=== PATIENT | male | born 1945 | race Hispanic/Latino ===

== ENCOUNTER → 2016-11-08 | Outpatient (CLI) | payer MEDICARE ==
[~2016-11-08] MED LIST: ASMA220A2 IN; ATRO0.06; CLOT1CRE71 TOP; D 10CHW PO; FLUC10TA AD; LISI20TA3 PO; LOPR1TAB6 PO; MOME50SP2; MONT10TA2 PO; MULTTAB4 PO; OMEP20CA3 AD; OSTETAB3 PO; VALS160T PO; ZYRT10CA PO
[2016-11-08 07:23] LABS: ALBUMIN 3.7 GM/DL (3.2-5.2); ALBUMIN/GLOBULIN RATIO 1.12 (1.00-1.93); ALKALINE PHOSPHATASE 75 U/L (45-117); ALT/SGPT 29 U/L (12-78); ANION GAP 6 MEQ/L (8-16); AST/SGOT 19 U/L (15-37); BILIRUBIN,TOTAL 0.4 MG/DL (0.2-1.0); BLOOD UREA NITROGEN 15 MG/DL (7-18); CALCIUM LEVEL 9.5 MG/DL (8.8-10.2); CARBON DIOXIDE LEVEL 30 MEQ/L (21-32); CHLORIDE LEVEL 106 MEQ/L (98-107); CREATININE FOR GFR 0.94 MG/DL (0.70-1.30); GLOMERULAR FILTRATION RATE > 60.0 (>42); GLUCOSE, FASTING 98 MG/DL (83-110); SODIUM LEVEL 142 MEQ/L (136-145)
== END ==
LOC: M LAB 06:32
PROVIDERS: ATTEND Internal Medicine Cardiovascular Disease
DX: E78.5 Hyperlipidemia, unspecified (principal); I10 Essential (primary) hypertension

== ENCOUNTER → 2017-08-09 | Outpatient (REF) | payer MEDICARE | LOC: M LAB REF 15:36 | DX: B35.3 Tinea pedis (principal) | CPT/HCPCS: 87101 ==

== ENCOUNTER 2017-08-10 17:59 | Emergency (ER) | payer MEDICARE ==
[2017-08-10] MEDS: ASPIRIN 81 MG CHEW TABLET PO (18:39)
[2017-08-10] MEDS: NITROGLYCERIN 0.4 MG SUBL TABLET SL ×2 (18:41→18:50)
[2017-08-10 18:45] LABS: BASO % 0.4 % (0.0-1.0); EOS # 0.1 10^3/uL (0.0-0.50); EOS % 1.1 % (0.0-3.0); HEMOGLOBIN 14.7 g/dl (13.5-17.5); IMMATURE GRANULOCYTE % 1.3 % (0-3.0); LYMPH # 1.3 10^3/uL (1.5-4.5); LYMPH % 13.6 % (24.0-44.0); MEAN CORPUSCULAR VOLUME 94.2 fl (80.0-96.0); MONO # 1.1 10^3/uL (0.0-0.8); MONO % 11.5 % (0.0-5.0); NEUTROPHILS # 6.6 10^3/uL (1.8-7.7); NEUTROPHILS % 72.1 % (36.0-66.0); PLATELET COUNT, AUTOMATED 222 10^3/uL (150-450); RED BLOOD COUNT 4.46 10^6/uL (4.30-6.10); RED CELL DISTRIBUTION WIDTH 12.6 % (11.5-14.5); WHITE BLOOD COUNT 9.2 10^3/uL (4.0-10.0)
[2017-08-10 18:50] LABS: INR 0.95; PROTHROMBIN TIME 12.8 SECONDS (12.4-14.5)
[2017-08-10 18:58] LABS: ALBUMIN 3.6 GM/DL (3.2-5.2); ALBUMIN/GLOBULIN RATIO 0.92 (1.00-1.93); ALKALINE PHOSPHATASE 88 U/L (45-117); ALT/SGPT 38 U/L (12-78); ANION GAP 7 MEQ/L (8-16); AST/SGOT 26 U/L (7-37); BILIRUBIN,DIRECT 0.1 MG/DL (0.0-0.2); BILIRUBIN,TOTAL 0.4 MG/DL (0.2-1.0); BLOOD UREA NITROGEN 18 MG/DL (7-18); CALCIUM LEVEL 8.7 MG/DL (8.8-10.2); CARBON DIOXIDE LEVEL 27 MEQ/L (21-32); CHLORIDE LEVEL 105 MEQ/L (98-107); CPK CREATINE PHOSPHOKINASE 113 U/L (39-308); CREATININE FOR GFR 1.02 MG/DL (0.70-1.30); GLOMERULAR FILTRATION RATE > 60.0 (>42); GLUCOSE, FASTING 109 MG/DL (70-100); MB/CK RELATIVE INDEX 1.76 (< OR =4); POTASSIUM SERUM 3.6 MEQ/L (3.5-5.1); SODIUM LEVEL 139 MEQ/L (136-145); TOTAL PROTEIN 7.5 GM/DL (6.4-8.2); TROPONIN I 0.12 NG/ML (< 0.10)
== END 2017-08-10 20:47 | disposition short-term general hospital (02) ==
LOC: M ED 17:59
DX: I21.4 Non-ST elevation (NSTEMI) myocardial infarction (principal); I10 Essential (primary) hypertension; Z87.891 Personal history of nicotine dependence; Z95.5 Presence of coronary angioplasty implant and graft; Z79.02 Long term (current) use of antithrombotics/antiplatelets; Z79.82 Long term (current) use of aspirin; Z51.81 Encounter for therapeutic drug level monitoring; Z79.899 Other long term (current) drug therapy; B35.4 Tinea corporis
CPT/HCPCS: 71045

== ENCOUNTER → 2017-08-10 | Outpatient (CLI) | payer MEDICARE ==
[2017-08-10 10:00] LABS: ALBUMIN 3.7 GM/DL (3.2-5.2); ALBUMIN/GLOBULIN RATIO 1.23 (1.00-1.93); ALKALINE PHOSPHATASE 70 U/L (45-117); ALT/SGPT 37 U/L (12-78); AST/SGOT 20 U/L (7-37); BILIRUBIN,DIRECT 0.2 MG/DL (0.0-0.2); BILIRUBIN,TOTAL 0.6 MG/DL (0.2-1.0); TOTAL PROTEIN 6.7 GM/DL (6.4-8.2)
== END ==
LOC: M LAB 09:11
DX: Z51.81 Encounter for therapeutic drug level monitoring (principal); Z79.899 Other long term (current) drug therapy; B35.4 Tinea corporis

== ENCOUNTER → 2017-10-03 | Outpatient (CLI) | payer MEDICARE ==
[2017-10-03 09:20] LABS: ALT/SGPT 52 U/L (12-78)
[2017-10-03 09:20] LABS: AST/SGOT 25 U/L (7-37)
== END ==
LOC: M LAB 07:49
DX: B35.4 Tinea corporis (principal); Z51.81 Encounter for therapeutic drug level monitoring; Z79.899 Other long term (current) drug therapy
CPT/HCPCS: 84460

== ENCOUNTER → 2018-02-23 | Outpatient (REF) | payer MEDICARE | LOC: M LAB REF 13:05 | DX: R05 Cough (principal) | CPT/HCPCS: 87205 ==

== ENCOUNTER → 2018-06-14 | Outpatient (REF) | payer MEDICARE ==
[~2018-06-14] MED LIST changes: -ASMA220A2 IN; +ASMA220A2 INH; +ASPI1TAB PO; +ATOR40TA75 PO; +CETI10TA PO; +CLOP75TA2 PO; +D 101TAB PO; +IPRA6SP; +ISOS30TA4 PO; +NITR0.4S14 SL; -OMEP20CA3 AD; +OMEP20CA3 PO; +PATIENT COMMENT; +RANO5TAB PO; +SALI0.6528; +VALS1TAB47 PO; +VITMTA PO
== END ==
LOC: M LAB REF 16:14
PROVIDERS: ATTEND Physician Assistant
DX: R30.0 Dysuria (principal)

== ENCOUNTER 2018-08-21 05:56 | Day surgery (SDC) | payer MEDICARE ==
[~2018-08-21] VITALS: Ht 162.6 cm; Wt 60.3 kg
[~2018-08-21 05:56] MED LIST changes: +ALBU17IN2 INH; -ASPI1TAB PO; +ASPI81TA26 PO; -D 101TAB PO; +OCUV1CHW PO; -VALS1TAB47 PO; +VALS1TAB67 PO; +VITA-144 PO; +[UNRECOGNIZED DRUG - CODE]
[2018-08-21] MEDS ORDERED: LR 1,000 ML IV ONE (06:00)
[2018-08-21] MEDS ORDERED: BUPIVACAINE HCL 0.25% 30 ML VIAL As Ordered ONE (06:59)
[2018-08-21] MEDS ORDERED: PROPOFOL 200 MG/20 ML VIAL As Ordered ONE (07:11)
[2018-08-21] MEDS ORDERED: ROCURONIUM BROMIDE 50 MG/5 ML VIAL As Ordered ONE ×2 (07:11→08:47)
[2018-08-21] MEDS ORDERED: LIDOCAINE 2% INJ 100 MG/5 ML SDV (FOR ANES.) As Ordered ONE (07:11)
[2018-08-21] MEDS ORDERED: fentaNYL 250 MCG/5 ML INJECTION (J3010) As Ordered ONE (07:11)
[2018-08-21] MEDS ORDERED: MIDAZOLAM INJ 2 MG/2 ML VIAL (J2250) As Ordered ONE (07:11)
[2018-08-21] MEDS ORDERED: ePHEDrine SULFATE 25 MG/5 ML(5MG/ML) SYRINGE As Ordered ONE (07:43)
[2018-08-21] MEDS ORDERED: dexameTHASONE 4 MG/ML 1ML VIAL (J1100) As Ordered ONE (07:50)
[2018-08-21] MEDS ORDERED: PHENYLephrine HCL 500 MCG/5 ML (100MCG/ML) SYRINGE (J2370) As Ordered ONE (07:50)
[2018-08-21] MEDS ORDERED: ONDANSETRON 4MG/2ML VIAL (J2405) As Ordered ONE ×2 (08:22→15:55)
[2018-08-21] MEDS ORDERED: NEOSTIGMINE 10 MG/10 ML VIAL (J2710) As Ordered ONE ×2 (08:22→08:24)
[2018-08-21] MEDS ORDERED: KETOROLAC 60 MG/2 ML VIAL (J1885) As Ordered ONE (08:22)
[2018-08-21] MEDS ORDERED: GLYCOPYRROLATE INJ 0.2 MG/ML 2 ML VIAL As Ordered ONE (08:22)
[2018-08-21] MEDS ORDERED: PERCOCET 5MG/325MG TAB As Ordered ONE (10:09)
[2018-08-21] MEDS ORDERED: HYDR-3713 PO (10:20)
[2018-08-21] MEDS ORDERED: LR 1,000 ML IV SCH (10:45)
[2018-08-21] MEDS ORDERED: fentaNYL 100 MCG/2 ML INJECTION (J3010) IV PRN (10:45)
[2018-08-21] MEDS ORDERED: HYDROMORPHONE HCL 0.5 MG/ 0.5 ML SYRINGE (J1170 PER 1) IV PRN (10:45)
[2018-08-21] MEDS ORDERED: ONDANSETRON 4MG/2ML VIAL (J2405) IV PRN (10:45)
[2018-08-21] MEDS ORDERED: PERCOCET 5MG/325MG TAB PO PRN (10:45)
[2018-08-21] MEDS ORDERED: METOPROLOL TART 25 MG TABLET PO ONE (13:30)
[2018-08-21] MEDS ORDERED: VALSARTAN 80 MG TAB (DIOVAN) PO ONE (13:30)
[2018-08-21] MEDS ORDERED: hydrALAZINE INJ 20 MG/ML VIAL As Ordered ONE (14:15)
[2018-08-21] MEDS ORDERED: LABETALOL HCL 100 MG/20 ML VIAL As Ordered ONE (14:15)
[2018-08-21] MEDS: LABETALOL HCL 100 MG/20 ML VIAL IV SCH ×5 (14:26→15:43)
[2018-08-21] MEDS: hydrALAZINE INJ 20 MG/ML VIAL IV SCH ×4 (14:30→15:15)
[2018-08-21] MEDS ORDERED: NITROGLYCERIN 0.4 MG SUBL TABLET SL PRN ×2 (14:45→16:15)
[2018-08-21] MEDS ORDERED: LORazepam 2 MG TAB PO ONE (14:45)
--- NOTE | 2018-08-21 14:53 | REP ---
REASON: Chest pain. COMPARISON: 08/10/2017. FINDINGS: The technique utilized in obtaining the radiograph has magnified the cardiac silhouette and accentuated the interstitial markings. The superior mediastinal structures are midline. The cardiac silhouette is unremarkable in size, shape, and position. The diaphragmatic surfaces of the lungs are regular, and the costophrenic angles are clear. The pulmonary kaur are clear. The imaged osseous structures are intact. IMPRESSION: There is no acute cardiopulmonary disease. No significant change from the prior exam. Electronically Signed by Juan Carlos Sloan DO 08/21/2018 04:09 P
[2018-08-21] MEDS ORDERED: METOPROLOL 5 MG/5 ML VIAL As Ordered ONE (14:55)
[2018-08-21] MEDS: METOPROLOL 5 MG/5 ML VIAL IV SCH ×5 (14:59→15:38)
[2018-08-21 15:17] LABS: MB/CK RELATIVE INDEX 1.9 (< OR =4); TROPONIN I 0.15 NG/ML (< 0.10)
[2018-08-21] MEDS ORDERED: MORPHINE 4 MG/ML 1ML VIAL/SYRINGE (J2270) As Ordered ONE (15:22)
[2018-08-21] MEDS ORDERED: LR 250 ML IV ONE (15:30)
[2018-08-21] MEDS ORDERED: ASPIRIN 81 MG CHEW TABLET PO ONE (15:30)
[2018-08-21] MEDS ORDERED: MORPHINE 4 MG/ML 1ML VIAL/SYRINGE (J2270) IV ONE (15:30)
[2018-08-21] MEDS ORDERED: ASPIRIN 81 MG CHEW TABLET As Ordered ONE (15:34)
[2018-08-21] MEDS ORDERED: ENALAPRILAT INJ 2.5MG/2ML VIAL IV ONE (15:45)
[2018-08-21] MEDS ORDERED: CLOPIDOGREL 75 MG TAB PO STA (16:15)
[2018-08-21] MEDS ORDERED: METOCLOPRAMIDE INJ 10MG/2ML VIAL (J2765) As Ordered ONE (16:45)
--- NOTE | 2018-08-21 16:53 | CR.PDOC ---
General Date of Consultation: Aug 21, 2018 Consultation REASON FOR CONSULTATION/CHIEF COMPLAINT: Consulted by PACU for chest pain. HISTORY OF PRESENT ILLNESS: Patient is a 72-year-old male with a past medical history of STEMI (01/2017; s/p Stent x1, followed by Stent x2 6 months after), HTN, Asthma, GERD, presents to [facility] for an elective left inguinal hernia repair with general surgery. Patient had the procedure completed earlier today and was in the recovery room where he began to experience chest pain. Patient began expressing chest pain around 1:50 PM. Initial EKG had revealed ST segment depressions and subsequent lab work showed that he had a troponin elevation of 0.15. Patients systolic blood pressure was noted to be 180. His outpatient conservation or heritage architect, Dr. Shetty was contacted who had advised to control the blood pressure. Patient was given Enalapril 2.5 IV, labetalol 20 IV, metoprolol 5 IV and hydralazine 10 IV. Patient reported the chest pain as a 4-5 / 10, pressure-like in the center of his chest without any significant radiation. Patient reported associated shortness of breath without sweating. Denied any nausea or vomiting. Patient reported that he took nitroglycerin in the recovery room and had relief of the chest pain. Patient denied any aggravating factors. Patient denies any cough or any fevers and chills. Patient has had a nuclear stress test completed in August 2017, which was reported negative. Prior to this procedure, patient was advised to stop Plavix 7 days preop. Patient had stopped both aspirin and Plavix on 08/14. Currently patient denies any headache, abdominal pain, constipation, diarrhea, or urinary discomfort. Patient has reported a weight loss of approximately 35 pounds over 3-4 months. Reports that his appetite has been fairly okay. ALLERGIES: Please see below. HOME MEDICATIONS: Please see below. 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 REVIEW OF SYSTEMS: 10 point review systems complete, all negative otherwise stated in HPI PHYSICAL EXAMINATION: - Vitals: BP 169/81, HR 98, RR 18, Sat 97%NC2L, Temp 98.0F - General: Lying in bed, No acute distress, Speaking in full sentences, AAOx3 - HEENT: NC, AT, PERRLA, EOMI - CVS: Tachycardia, +S1S2, - Murmurs / rubs / gallops - Lungs: Fair air entry bilaterally, Clear to auscultation, No wheezing / rales / rhonchi - Abdomen: Soft, Non-distended, Non-tender - Extremities: No lower extremity edema, No calf tenderness - Neuro: No focal motor or sensory deficit - Skin: No visible rashes LABORATORY DATA: Please see below. ASSESSMENT/PLAN: Chest pain - possibly 2/2 NSTEMI in the setting of hypertension - Patient complained of chest pain following for procedure - At a time patients systolic blood pressure was 180s and 90s - Patient described chest pain is typical in nature - Chest pain had resolved with nitroglycerin - EKG reviewed showed ST segment depressions in leads V4 and V5; this has subsequently resolved on repeat EKG done 2 hours after - Troponin 1 set is 0.15; will continue to trend - Case discussed with Dr. Washington; advised to give Plavix 150 mg x 1 dose now; c/w ASA 325 - c/w Valsartan, Carvedilol, ASA, Plavix, Lovenox therapeutic - Will contact [facility] for transfer for possible cardiac catheterization Hypertensive emergency - Patient has received several medications in the PACU to help control his blood pressure - Has received Enalapril, Labetalol, Metoprolol, Hydralazine - Systolic blood pressures appear to be trending down - Will resume oral medications STEMI - Occurred on 01/2017; s/p Stent x1, followed by Stent x2 6 months after - Follow with Dr. Shetty as an outpatient Asthma - No evidence of exacerbation - c/w Inhaled therapy as ordered GERD - c/w Omeprazole DVT prophylaxis - Will start Lovenox therapeutic Vital Signs/I&O Vital Signs Date Time Temp Pulse Resp B/P (MAP) Pulse Ox O2 Delivery O2 Flow Rate FiO2 08/21/18 16:45 98.6 94 16 166/79 (108) 94 3 Laboratory Data Labs 24H Laboratory Tests 2 08/21/18 14:30: Total Creatine Kinase 79, Creatine Kinase MB 2.0, Creatine Kinase MB Relative Index 1.90, Troponin I 0.15H Allergies Coded Allergies: No Known Allergies (Unverified , 08/21/18) Home Medications Scheduled Albuterol Sulfate (Proventil Hfa) 6.7 Gm Hfa.aer.ad, 2 PUFF INH Q4H for wheezing, #1 (Reported) Aspirin (Aspirin EC) 81 Mg Tab, 81 MG PO DAILY, (Reported) Atorvastatin Calcium (Atorvastatin Calcium) 40 Mg Tab, 40 MG PO BID, (Reported) Cetirizine HCl (Cetirizine HCl) 10 Mg Tab, 10 MG PO DAILY, (Reported) Cholecalciferol (Vitamin D3) (Vitamin D3) 1,000 Unit Tab, 1,000 UNIT PO QHS, (Reported) Clopidogrel Bisulfate (Clopidogrel) 75 Mg Tab, 75 MG PO DAILY, (Reported) Glucosamine/Chondr Rizo A Sod (Osteo Bi-Flex Caplet) 1 Tab Tab, 1 TAB PO BID, (Reported) Ipratropium [place] (Ipratropium [place]) 165 [place]/15 Ml Naspr, 2 SPRAY NA QHS, (Reported) Isosorbide Mononitrate (Isosorbide Mononitrate ER) 30 Mg Tab, 30 MG PO DAILY, #30 Metoprolol Tartrate (Lopressor) 50 Mg Tab, 25 MG PO BID, (Reported) Mometasone Furoate (Asmanex) 220 Mcg/Inh Aer, 2 PUFFS INH BID, (Reported) Montelukast Sodium (Montelukast Sodium) 10 Mg Tab, 10 MG PO QHS, (Reported) Multivitamins (Thera M Plus Tablet) 1 Tab Tab, 1 TAB PO DAILY, (Reported) Omeprazole (Omeprazole) 20 Mg Cap, 20 MG PO DAILY, (Reported) Sodium Chloride (Saline Nose [place]) 45 Ml [place], 0.65 % NA QHS, (Reported) Valsartan (Valsartan) 160 Mg Tab, 160 MG PO BID, (Reported) Vit C/E/Zinc/Lutein/Zeaxanthin (Ocuvite Eye Health Gummies) 1 Each Tab.chew, 1 CHW PO DAILY, (Reported) Scheduled PRN Hydrocodone/Acetaminophen (Hydrocodone-Acetamin 5-325 mg) 1 Each Tablet, 1 TAB PO Q6H PRN for MODERATE/SEVERE PAIN (PS 5-10), #12 MDD 4 Nitroglycerin (Nitroglycerin) 0.4 Mg Sub, 0.4 MG SL Q5MP PRN for CHEST PAIN, (Reported) JULIA TREVIÑO MD Aug 21, 2018 16:53
[2018-08-21] MEDS ORDERED: METOCLOPRAMIDE INJ 10MG/2ML VIAL (J2765) IV SCH (17:00)
[2018-08-21 18:11] LABS: MB/CK RELATIVE INDEX 2.47 (< OR =4); TROPONIN I 0.16 NG/ML (< 0.10)
[2018-08-21] MEDS ORDERED: NITROGLYCERIN 2% OINT 1 GM *U/D* PKT TOP ONE (18:15)
[2018-08-21 18:30] VITALS: BP 164/78; PULSE 104
[2018-08-21 18:31] VITALS: BP 164/78
--- NOTE | 2018-08-21 18:44 | ECGEPIP ---
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 Faster rate but otherwise unchanged from 08/10/17. Electronically Signed on 08-21-2018 18:44:01 EDT by Vidal Miner
--- NOTE | 2018-08-21 18:48 | ECGEPIP ---
[facility] Test Date: 2018-08-21 Pat Name: KOREY STRONG Department: Room: - Gender: Male Food Expeditor: ZTRN : 1945 Requested By: JULIA TREVIÑO Order Number: [id number] Reading MD: Vidal Miner Measurements Intervals [place] Rate: 97 P: 32 [place]: 142 QRS: 16 QRSD: 86 T: 24 QT: 356 QTc: 452 Interpretive Statements SINUS RHYTHM Normal study Slower rate but otherwise unchanged from 08/21/18. Electronically Signed on 08-21-2018 18:47:57 EDT by Vidal Miner
[2018-08-21] MEDS ORDERED: VITAMIN D 1,000 INTERNATIONAL UNITS TABLET PO SCH (21:00)
[2018-08-21] MEDS ORDERED: VALSARTAN 80 MG TAB (DIOVAN) PO SCH (21:00)
[2018-08-21] MEDS ORDERED: IPRATROPIUM 0.06% NASAL SPRAY 15 ML (ATROVENT) SCH (21:00)
[2018-08-21] MEDS ORDERED: METOPROLOL TART 25 MG TABLET PO SCH (21:00)
[2018-08-21] MEDS ORDERED: MONTELUKAST 10 MG TAB PO SCH (21:00)
[2018-08-21] MEDS ORDERED: ATORVASTATIN 20 MG TAB PO SCH (21:00)
--- NOTE | 2018-08-22 08:58 | RO ---
DATE OF PROCEDURE: 08/21/2018 PREOPERATIVE DIAGNOSIS: Left inguinal hernia. POSTOPERATIVE DIAGNOSIS: Indirect left inguinal hernia. PROCEDURE PERFORMED: Robotic-assisted laparoscopic left inguinal hernia repair. SURGEON: Jaylon Spencer MD WELDER METAL FAB: ARVIN Gomez. CASEY: Jair Edwards DO ANESTHESIA: General. INDICATIONS FOR THE PROCEDURE: The patient is a 72-year-old man who was diagnosed with a left inguinal hernia and is now for a left inguinal herniorrhaphy performed laparoscopically with the da Sharon surgical system. OPERATIVE PROCEDURE: The patient was brought to the operating room and placed on the table in a supine position. He was placed under general endotracheal anesthesia. The patient's abdomen, groins, and genitalia were prepped and draped in a sterile fashion. 0.25% Marcaine was infiltrated at each of the trocar sites. The initial entry was approximately 2-3 cm above the umbilicus along the midline. A short incision was made, and the Veress needle was inserted. After positive hanging drop test, the abdomen was insufflated with carbon dioxide gas. After insufflating the abdomen, an 8-mm on robotic port was placed over the scope and advanced through the abdominal wall without difficulty. Insufflation continued, and the laparoscope was placed. Initial examination showed no evidence of any significant adhesions. There were no acute inflammatory changes noted. The liver appeared normal, and the small and large bowel loops that were seen appeared normal. The patient was tilted to a Trendelenburg position. He was noted to have a definite inguinal hernia on the left, which appeared to be indirect. An 8-mm port was placed in the left side of the abdomen at about the same level as the initial port, and a third port was placed in the right upper quadrant. The robot was docked to the camera port, and the targeting maneuver was performed. The additional arms were docked to the remaining two ports. A grasper, which was a bipolar grasper, and a cauterizing scissors were inserted. I then moved to the control console. The operation proceeded robotically at this point. Gricelda Rodriguez was necessary as an office clerk assistant to provide sutures and the mesh and to adjust the robotic arms as necessary. An incision was made in the peritoneum above the inguinal area, and a flap was developed in the preperitoneal space. This was developed inferiorly, and the hernia sac was freed and reduced into the abdomen. The inferior epigastric vessels were identified and preserved. The fascia of Yo ligament was identified. Care was taken to expose the portion of the vas deferens. Care was taken to avoid the iliac vessels and avoid straying lateral to these into the so-called triangle of pain. Once the peritoneal space had been created, a medium Bard 3DMax Light mesh patch medium-size was inserted. This was placed into the preperitoneal space. A single tacking suture of 2-0 Vicryl was used to tack the medial end of this to the fascia. This nicely covered the area of the hernia defect with an excellent overlap. The peritoneum was then closed with a running suture of 2-0 V-Loc. The patient tolerated the procedure well without apparent complication. The robot was undocked, and the abdomen was deflated. The patient was returned to a flat position. The skin incisions were closed by Gricelda Rodriguez, and light dressings were applied after Steri-Strips. The patient tolerated the procedure well without apparent complication. He was awakened and transported to the recovery room in stable condition. The mesh utilized was a 3DMax Light, lot number [id number], reference code [id number]. [facility] DIVISIONTres
[2018-08-22] MEDS ORDERED: ISOSORBIDE MON. (IMDUR) 30 MG XR TAB PO SCH (09:00)
[2018-08-22] MEDS ORDERED: CETIRIZINE (ZyrTEC) 10 MG TAB PO SCH (09:00)
[2018-08-22] MEDS ORDERED: OMEPRAZOLE 20 MG CAP PO SCH (09:00)
[2018-08-22] MEDS ORDERED: MULTIVITAMINS/MINERALS THERAP 1 TAB PO SCH (09:00)
[2018-08-22] MEDS ORDERED: ASPIRIN 81 MG ENTERIC TAB PO SCH (09:00)
== END 2018-08-21 20:11 | disposition short-term general hospital (02) ==
LOC: M SDC 05:56 → M PCU 17:52 → M SDC 20:11
PROVIDERS: ATTEND Surgery
DX: K40.90 Unilateral inguinal hernia, without obstruction or gangrene, not specified as recurrent (principal); R07.89 Other chest pain; I25.2 Old myocardial infarction; I10 Essential (primary) hypertension; Z98.61 Coronary angioplasty status; G47.30 Sleep apnea, unspecified; K21.9 Gastro-esophageal reflux disease without esophagitis; I16.0 Hypertensive urgency; Z79.82 Long term (current) use of aspirin; Z79.02 Long term (current) use of antithrombotics/antiplatelets; Z79.51 Long term (current) use of inhaled steroids; J44.9 Chronic obstructive pulmonary disease, unspecified
CPT/HCPCS: 36415; 49650; 71045; 82550; 82553; 84484; 93005; C1781; J1100; J1885; J2250; J2270; J2370; J2405; J2710; J2765; J3010

== ENCOUNTER → 2018-09-05 | Outpatient (CLI) | payer MEDICARE ==
[~2018-09-05] MED LIST changes: +HYDR-3713 PO
--- NOTE | 2018-09-05 14:25 | REP ---
Right lower extremity deep vein duplex ultrasound for right lower extremity swelling: The patient reportedly underwent greater saphenous vein harvesting of the right lower extremity recently. The deep veins demonstrate normal compression, normal Doppler color flow and normal Doppler waveforms with respiration and augmentation from the popliteal vein to the common femoral vein. Impression: There is no right lower extremity deep vein thrombus. However, there are three focal subcutaneous fluid collections, one above the other in the medial distal thigh measuring 4.0 x 1 x 2 x 1.6 cm, 3.9 x 1.0 x 2.0 cm, and 3.8 x 1.1 x 2.3 cm. These are compatible with hematomas versus abscesses. Impression: There are three focal fluid collections along the distal medial right thigh compatible with hematomas versus abscesses. There is no deep vein thrombus. Electronically Signed by Jair Solis MD 09/05/2018 02:17 P
== END ==
LOC: M RAD 13:16
PROVIDERS: ATTEND Physician Assistant
DX: R60.9 Edema, unspecified (principal)

== ENCOUNTER → 2018-09-05 | Outpatient (REF) ==
[2018-09-05 09:29] LABS: HEMATOCRIT 32.7 % (42.0-52.0); HEMOGLOBIN 10.6 g/dl (13.5-17.5); MEAN CORPUSCULAR HEMOGLOBIN 31.9 pg (27.0-33.0); MEAN CORPUSCULAR HGB CONC 32.4 g/dl (32.0-36.5); MEAN CORPUSCULAR VOLUME 98.5 fl (80.0-96.0); PLATELET COUNT, AUTOMATED 471 10^3/uL (150-450); RED BLOOD COUNT 3.32 10^6/uL (4.30-6.10); WHITE BLOOD COUNT 8.1 10^3/uL (4.0-10.0)
[2018-09-05 10:06] LABS: ALBUMIN 3.1 GM/DL (3.2-5.2); ALT/SGPT 41 U/L (12-78); BILIRUBIN,DIRECT 0.2 MG/DL (0.0-0.2); BILIRUBIN,TOTAL 0.5 MG/DL (0.2-1.0); BLOOD UREA NITROGEN 9 MG/DL (7-18); CARBON DIOXIDE LEVEL 28 MEQ/L (21-32); CHLORIDE LEVEL 108 MEQ/L (98-107); CREATININE FOR GFR 0.62 MG/DL (0.70-1.30); GLOMERULAR FILTRATION RATE > 60.0 (>42); GLUCOSE, FASTING 69 MG/DL (70-100); LIPASE 187 U/L (73-393); POTASSIUM SERUM 4.7 MEQ/L (3.5-5.1); SODIUM LEVEL 142 MEQ/L (136-145); TOTAL PROTEIN 6.3 GM/DL (6.4-8.2)
== END ==
PROVIDERS: ATTEND Internal Medicine
DX: I10 Essential (primary) hypertension (principal)

== ENCOUNTER → 2019-08-07 | Outpatient (REF) | payer MEDICARE ==
[~2019-08-07] MED LIST changes: -ALBU17IN2 INH; +LISI20TA20 PO; -LISI20TA3 PO; -MONT10TA2 PO; +MONT10TA4 PO; +OMEP1CAP73 PO; -OMEP20CA3 PO; +PROV108A INH; +RANO500T7 PO; -RANO5TAB PO; -VALS160T PO; +VALS160T2 PO
== END ==
LOC: M LAB REF 16:42
PROVIDERS: ATTEND Internal Medicine Pulmonary Disease
DX: J45.20 Mild intermittent asthma, uncomplicated (principal); R05 Cough

== ENCOUNTER → 2019-08-09 | Outpatient (CLI) | payer MEDICARE ==
--- NOTE | 2019-08-09 15:55 | REPPI ---
REASON FOR EXAM: History of asthma. Multiple priors were reviewed, the latest of which is a portable examination obtained 08/21/2018. The latest PA view of the chest for review is 02/21/2014. Since the latest prior exam, the patient has undergone median sternotomy. The heart is not enlarged and the pleural angles are sharp. Note is again made of incidental calcified granuloma of the right upper lobe stable for years. Seen superimposed on the anterior and of the left 7th rib, there is a tiny nodular density. This was not present or imaged on the prior exams with inability assess this level properly on portable exam. Other than the median sternotomy changes, the osseous structures are stable. IMPRESSION: Possible nodule left lower lobe as described above. Chest CT is warranted. Electronically Signed by Juan Carlos Sloan DO 08/09/2019 04:53 P
== END ==
LOC: M PLAIMG 14:09
PROVIDERS: ATTEND Internal Medicine Pulmonary Disease
DX: R91.8 Other nonspecific abnormal finding of lung field (principal); J45.20 Mild intermittent asthma, uncomplicated

== ENCOUNTER → 2019-08-13 | Outpatient (REF) | payer MEDICARE | LOC: M LAB 11:07 | PROVIDERS: ATTEND Internal Medicine Pulmonary Disease | DX: J45.20 Mild intermittent asthma, uncomplicated (principal) ==

== ENCOUNTER → 2019-08-23 | Outpatient (CLI) | payer MEDICARE ==
[~2019-08-23] MED LIST changes: +MULT1TAB74 PO; -MULTTAB4 PO
--- NOTE | 2019-08-23 13:56 | REP ---
REASON FOR EXAM: Followup. COMPARISON EXAM: 01/20/2017, the latest prior. That examination showed bilateral lung field opacities. The lack of intravenous contrast decreases the sensitivity of the exam. Mediastinum and pulmonary jesica are unchanged. There is no evidence of a mass or adenopathy. There are no pleural or pericardial effusions. There is no significant change in appearance of the imaged upper abdomen. Today's exam has imaged more of the upper abdomen than the prior exam, showing a partially imaged, at least 2.6-cm sized low density structure in the right kidney, the imaged portion of which has slightly higher than water density Hounsfield unit readings. There is no change in the imaged osseous structures. Evaluation of the lung kaur again show an incidental calcified granuloma in the right lower lobe. The opacities seen on the prior exam have all cleared. There are no abnormal nodules, masses, or opacities. IMPRESSION: 1. Resolution of opacities seen on the latest prior CT examination of the chest with no new abnormality noted. 2. Although the latest prior chest CT did not image the low density structure seen in the right kidney, an older chest CT of 05/29/2014 did image the right kidney sufficiently to compare to today's exam and there is no change in the appearance of that low density structure, likely representing a simple renal cyst, although partially imaged on that exam as well. Electronically Signed by Juan Carlos Sloan DO 08/23/2019 02:34 P
== END ==
LOC: M RAD 06:53
PROVIDERS: ATTEND Physician Assistant
DX: J84.10 Pulmonary fibrosis, unspecified (principal); N28.89 Other specified disorders of kidney and ureter

== ENCOUNTER → 2019-09-26 | Outpatient (CLI) | payer MEDICARE ==
[2019-09-26 18:24] LABS: APPEARANCE, URINE CLEAR (CLEAR); BACTERIA, URINE AUTO NEGATIVE (NEGATIVE); BILIRUBIN, URINE AUTO NEGATIVE (NEGATIVE); BLOOD, URINE BLOOD 1+ (NEGATIVE); COLOR, URINE YELLOW (YELLOW); GLUCOSE, URINE (UA) AUTO NEGATIVE (NEGATIVE); KETONE, URINE AUTO NEGATIVE (NEGATIVE); LEUKOCYTE ESTERASE, URINE AUTO NEGATIVE (NEGATIVE); MUCUS, URINE SMALL (NEGATIVE); NITRITE, URINE AUTO NEGATIVE (NEGATIVE); PROTEIN, URINE AUTO NEGATIVE (NEGATIVE); RBC, URINE AUTO 4 /HPF (0-3); SPECIFIC GRAVITY URINE AUTO 1.009 (1.002-1.035); SQUAMOUS EPITHELIAL CELL UR AU 0 /HPF (0-6); UROBILINOGEN, URINE AUTO 0.2 mg/dL (0.0-2.0); WBC, URINE AUTO 0 /HPF (0-3)
== END ==
LOC: M PLALAB 09:34
PROVIDERS: ATTEND Nurse Practitioner Women's Health
DX: R31.0 Gross hematuria (principal); R97.20 Elevated prostate specific antigen [PSA]

== ENCOUNTER → 2020-06-24 | Outpatient (POV) | payer MEDICARE ==
[~2020-06-24] VITALS: Ht 152.4 cm; Wt 59.1 kg
[~2020-06-24] MED LIST changes: +ISOS1TAB35 PO; -ISOS30TA4 PO; +MONT10TA10 PO; -MONT10TA4 PO
[2020-06-24 10:30] VITALS: BP 166/82
--- NOTE | 2020-06-25 15:41 | IRCOV ---
[facility] IR Consult Office Visit IR Consult Office Visit DATE: Jun 24, 2020 REASON FOR CONSULTATION/CHIEF COMPLAINT: Bilateral lower extremity swelling and nonhealing ulcers. HISTORY OF PRESENT ILLNESS: 74-year-old nondiabetic male complaining of bilateral lower extremity swelling and left lower extremity ulceration which is present for over a year. He describes pain in the left foot. He's been seen by Dr. Patiño in the past and had 2 angiograms and interventions, last one in 2019. He reports symptoms improved somewhat after the procedure but then came back. He was started on aspirin, Plavix and Xarelto. He describes pain with elevation of the left lower extremity and leg cramps. He describes his legs always feel cold. He reports 1-1/2 months of rest pain in the left lower extremity worse with elevation. He denies any arterial stents in the legs. He does have cardiac stents placed in 2017 and 2018 followed by triple bypass in 2019. He denies intermittent claudication. He denies chest pain, shortness of breath or orthopnea. No prior cold leg, gangrene or amputations. ALLERGIES: Please see below. HOME MEDICATIONS: Please see below. PAST MEDICAL HISTORY: [place] Hypertension Hyperlipidemia PAST SURGICAL HISTORY: Prior left lower extremity angiograms. FAMILY HISTORY: Noncontributory. SOCIAL HISTORY: Nonsmoker. Denies alcohol or drugs. REVIEW OF SYSTEMS: Otherwise negative. PHYSICAL EXAMINATION: VITAL SIGNS: Please see below. GENERAL APPEARANCE: Appears well. Comfortable at rest. HEENT: No scleral icterus. RESPIRATORY: Scattered bilateral wheeze. CARDIOVASCULAR: Normal rate. ABDOMEN: Soft nontender. EXTREMITIES: Left lower extremity: Edema to the knee. Red shiny hairless skin. Temperature normal. No gangrene or amputations. Exquisitely tender ulceration plantar aspect of base of fifth metatarsal and lateral margin of fifth metatars al. Femoral pulse 2+ popliteal pulse 1+ DP/PT nonpalpable. Motor 5 out of 5. Right lower extremity: Edema to the knees: Red shiny hairless skin. Less edema than left lower extremity. Temperature normal. No gangrene or amputations. Femoral pulse 2+ popliteal pulse 1+ DP/PT nonpalpable. Motor 5 out of 5. NEUROLOGICAL: Alert and oriented. Weightbearing. PSYCHIATRIC: Appropriate to circumstance. LABORATORY DATA: None recent. Imaging: None available. ASSESSMENT/PLAN: 74-year-old male with bilateral lower extremity swelling, coronary artery disease and cardiac bypass presents with left lower extremity rest pain and tender nonhealing distal ulceration. Patient presents for second opinion. I discussed the risks and benefits of angiogram and intervention with the patient. The goal would be to evaluate the inflow and outflow to the left lower extremity and open up any occlusions via angioplasty and/or stenting. Patient is agreeable to proceed. We have scheduled the patient for the procedure. Patient will have to stop Xarelto for 48 hours prior to the procedure and Plavix for 5 days. I spent 30 minutes in consultation with the patient. Thank you for this referral. CC Dr. Esquivel Allergies Coded Allergies: No Known Allergies (Unverified , 08/21/18) Home Medications Scheduled Albuterol Sulfate (Proventil Hfa), 2 PUFF INH Q4H, (Reported) Aspirin (Aspirin EC), 81 MG PO DAILY, (Reported) Atorvastatin Calcium (Atorvastatin Calcium), 40 MG PO BID, (Reported) Cetirizine HCl (Cetirizine HCl), 10 MG PO DAILY, (Reported) Cholecalciferol (Vitamin D3) (Vitamin D3), 1,000 UNIT PO QHS, (Reported) Clopidogrel Bisulfate (Clopidogrel), 75 MG PO DAILY, (Reported) Glucosamine/Chondr Rizo A Sod (Osteo Bi-Flex Caplet), 1 TAB PO BID, (Reported) Ipratropium [place] (Ipratropium [place]), 2 SPRAY NA QHS, (Reported) Isosorbide Mononitrate (Isosorbide Mononitrate ER), 30 MG PO DAILY Metoprolol Tartrate (Lopressor), 25 MG PO BID, (Reported) Mometasone Furoate (Asmanex), 2 PUFFS INH BID, (Reported) Montelukast Sodium (Montelukast Sodium), 10 MG PO QHS, (Reported) Multivitamins (Thera M Plus Tablet), 1 TAB PO DAILY, (Reported) Omeprazole (Omeprazole), 20 MG PO DAILY, (Reported) Sodium Chloride (Saline Nose [place]), 0.65 % NA QHS, (Reported) Valsartan (Valsartan), 160 MG PO BID, (Reported) Vit C/E/Zinc/Lutein/Zeaxanthin (Ocuvite Eye Health Gummies), 1 CHW PO DAILY, (Reported) Scheduled PRN Hydrocodone/Acetaminophen (Hydrocodone-Acetamin 5-325 mg), 1 TAB PO Q6H PRN for MODERATE/SEVERE PAIN (PS 5-10) Nitroglycerin (Nitroglycerin), 0.4 MG SL Q5MP PRN for CHEST PAIN, (Reported) VS, I&O, 24H, Fishbone Vital Signs/I&O Vital Signs Date Time Temp Pulse Resp B/P (MAP) Pulse Ox O2 Delivery O2 Flow Rate FiO2 06/24/20 10:30 97.3 96 16 166/82 (110) 98 Room Air TROY MATTA MD Jun 25, 2020 15:41
== END ==
LOC: M IRPOV 10:28
PROVIDERS: ATTEND Radiology Diagnostic Radiology
DX: L97.919 Non-pressure chronic ulcer of unspecified part of right lower leg with unspecified severity (principal); L97.929 Non-pressure chronic ulcer of unspecified part of left lower leg with unspecified severity; M79.604 Pain in right leg; M79.605 Pain in left leg; I25.10 Atherosclerotic heart disease of native coronary artery without angina pectoris; R60.0 Localized edema; Z79.01 Long term (current) use of anticoagulants; Z79.82 Long term (current) use of aspirin; Z79.899 Other long term (current) drug therapy; Z95.1 Presence of aortocoronary bypass graft

== ENCOUNTER → 2020-07-02 | Outpatient (CLI) | payer MEDICARE ==
[~2020-07-02] MED LIST changes: +ALBUTEROL 90 MCG/ACT 8GM HFA INHALER INH PRN; +ATORVASTATIN 20 MG TAB PO SCH; +CETIRIZINE (ZyrTEC) 10 MG TAB PO SCH; +ISOSORBIDE MONONITRATE 10MG TABLET PO SCH; +ISOVUE-300 61% 50ML VIAL As Ordered ONE; +LIDOCAINE 1% MDV 20ML VIAL As Ordered ONE; +METOPROLOL TART 25 MG TABLET PO SCH; +MIDAZOLAM INJ 2MG/2ML VIAL (J2250 PER 1MG) As Ordered ONE; +MULTIVITAMINS/MINERALS THERAP 1 TAB PO SCH; +NITROGLYCERIN IN D5W 25MG/250ML (100MCG/ML) As Ordered ONE; +OMEPRAZOLE 20 MG CAP PO SCH; +SODIUM CHLORIDE NASAL 0.65% SPRAY BTL (OCEAN) PRN; +diphenhydrAMINE 50MG/ML VIAL (J1200) As Ordered ONE; +fentaNYL 100 MCG/2 ML INJECTION (J3010) As Ordered ONE
--- NOTE | 2020-07-02 12:11 | IRHP ---
[facility] IR Pre-Procedure H & P General Date of Service: Jul 02, 2020 Procedure: Same Day Surgery Interval History and Physical I have seen the patient and reviewed last H & P performed within 30 days. There is no significant interval change. History of Present Illness Chief Complaint The patient is a 74-year-old male admitted with a reason for visit of PAD. PRE-PROCEDURE DIAGNOSIS: PAD HEART: Normal rate. LUNGS: Normal breathing at rest. ASA Classification ASA Classification: III-Severe systemic dis. Mallampati Score: II NPO: Yes Problems with prior sedation: No Obstructive Sleep Apnea: No Plan moderate sedation Allergies Coded Allergies: No Known Allergies (Unverified , 08/21/18) Home Medications Scheduled Albuterol Sulfate (Proventil Hfa), 2 PUFF INH Q4H, (Reported) Aspirin (Aspirin EC), 81 MG PO DAILY, (Reported) Atorvastatin Calcium (Atorvastatin Calcium), 40 MG PO BID, (Reported) Cetirizine HCl (Cetirizine HCl), 10 MG PO DAILY, (Reported) Cholecalciferol (Vitamin D3) (Vitamin D3), 1,000 UNIT PO QHS, (Reported) Clopidogrel Bisulfate (Clopidogrel), 75 MG PO DAILY, (Reported) Glucosamine/Chondr Rizo A Sod (Osteo Bi-Flex Caplet), 1 TAB PO BID, (Reported) Ipratropium [place] (Ipratropium [place]), 2 SPRAY NA QHS, (Reported) Isosorbide Mononitrate (Isosorbide Mononitrate ER), 30 MG PO DAILY Metoprolol Tartrate (Lopressor), 25 MG PO BID, (Reported) Mometasone Furoate (Asmanex), 2 PUFFS INH BID, (Reported) Montelukast Sodium (Montelukast Sodium), 10 MG PO QHS, (Reported) Multivitamins (Thera M Plus Tablet), 1 TAB PO DAILY, (Reported) Omeprazole (Omeprazole), 20 MG PO DAILY, (Reported) Sodium Chloride (Saline Nose [place]), 0.65 % NA QHS, (Reported) Valsartan (Valsartan), 160 MG PO BID, (Reported) Vit C/E/Zinc/Lutein/Zeaxanthin (OcuvRoposo Eye Health Gummies), 1 CHW PO DAILY, (Reported) Scheduled PRN Hydrocodone/Acetaminophen (Hydrocodone-Acetamin 5-325 mg), 1 TAB PO Q6H PRN for MODERATE/SEVERE PAIN (PS 5-10) Nitroglycerin (Nitroglycerin), 0.4 MG SL Q5MP PRN for CHEST PAIN, (Reported) VS, I&O, 24H, [place] Laboratory Data 24H LABS Laboratory Tests 2 07/02/20 11:58: CBC/BMP TROY MATTA MD Jul 02, 2020 12:11
[2020-07-02 12:21] LABS: HEMATOCRIT 32.7 % (42.0-52.0); HEMOGLOBIN 9.9 g/dl (13.5-17.5); MEAN CORPUSCULAR HEMOGLOBIN 22.2 pg (27.0-33.0); MEAN CORPUSCULAR HGB CONC 30.3 g/dl (32.0-36.5); MEAN CORPUSCULAR VOLUME 73.3 fl (80.0-96.0); PLATELET COUNT, AUTOMATED 253 10^3/uL (150-450); RED BLOOD COUNT 4.46 10^6/uL (4.30-6.10); WHITE BLOOD COUNT 8.1 10^3/uL (4.0-10.0)
[2020-07-02 12:40] LABS: BLOOD UREA NITROGEN 14 MG/DL (7-18); CALCIUM LEVEL 9.5 MG/DL (8.8-10.2); CARBON DIOXIDE LEVEL 30 MEQ/L (21-32); CHLORIDE LEVEL 105 MEQ/L (98-107); CREATININE FOR GFR 0.78 MG/DL (0.70-1.30); GLOMERULAR FILTRATION RATE > 60.0 (>42); GLUCOSE, FASTING 84 MG/DL (70-100); POTASSIUM SERUM 3.6 MEQ/L (3.5-5.1); SODIUM LEVEL 139 MEQ/L (136-145)
[2020-07-02 18:45] VITALS: BP 188/82
--- NOTE | 2020-07-03 11:55 | IRPON ---
IR Postoperative Note Date Of Procedure: Jul 02, 2020 Time Of Procedure: 16:00 IR Postoperative Note IR Left leg angiogram IR Below-knee runoff arteriogram. IR Ultrasound-guided right common femoral artery access. IR Left anterior tibial artery angioplasty. IR Left popliteal artery angioplasty. IR Moderate sedation. Clinical Information:Left lower extremity pain and nonhealing ulcers. Physician: Dr. Jaquez. Procedure: The patient was advised of the benefits, risks, and alternatives of the procedure and informed consent was obtained. A time out was performed with verification of the patient's name, MRN, site of procedure, and type of procedure to be performed. The patient was positioned in the supine position on the angiographic table. The site was prepped and draped in the usual sterile fashion. Moderate sedation was performed by the physician including the presence of an independent trained RN, who assisted in monitoring the patient's level of consciousness and physiological status. Following the administration of fentany l and Versed, the physician spent 120 minutes of continuous [id number] time with the patient. A mechanical systems designer radiograph reveals no gross abnormality. Ultrasound of the right groin demonstrates patent right common femoral artery. Lidocaine was used for local anesthesia. The right common femoral artery was accessed, under ultrasound guidance with a microintroducer set. A short 0.018" [place] wire was inserted and the needle was exchanged for a 4 Fr microintroducer sheath. The guidewire and dilator were removed and a 0.035" Bentson wire was advanced under fluoroscopy guidance and placed into the abdominal aorta. A 6 Fr sheath was placed over the wire. A pelvic angiogram was performed and this demonstrates patent infrarenal abdominal aorta, patent bilateral common iliac, internal iliac and external iliac arteries. Atherosclerotic irregularity in the left common iliac artery without significant stenosis. Patent left common femoral, proximal superficial femoral and profunda femoris. A wire was advanced through the catheter under fluoroscopic guidance and used to gain up in over access into the left common iliac artery. The catheter was exchanged over the wire for 4 Azeri glide cath. The glide cath and wire were used under fluoroscopy guidance to catheterize the left common femoral artery. A left lower extremity angiogram was performed. This demonstrates patent proximal, mid and distal left superficial femoral artery and profunda femoris without significant focal stenosis. Angiography further down the left leg was performed and this demonstrates patent distal superficial femoral artery and popliteal artery. There is a greater than 80% stenosis at the origin of anterior tibial artery. The peroneal artery is patent. The posterior tibial artery is occluded from its origin. Runoff arteriogram to the left foot was performed. This demonstrates single vessel peroneal artery supply to the left foot. The peroneal artery collateralizes distally to supply calcaneal, plantar branches and dorsalis pedis. No contribution from the posterior tibial artery to the left foot. No significant contribution to the foot from the left anterior tibial artery which has multifocal stenosis with significantly delayed flow and distal occlusion. The catheter was exchanged over the wire for a [place] catheter. The catheter in conjunction with a wire, was used under fluoroscopic guidance, to catheterize the superficial femoral artery followed by the popliteal artery. The catheter was exchanged over the wire for a Navicross catheter. The Navicross catheter in conjunction with the wire was then used under fluoroscopy guidance, to catheterize the anterior tibial artery. Intermittent injection of contrast confirmed intraluminal location. After successful mid left anterior tibial artery catheterization, the catheter was exchanged for an 018 system. An 018 [place] micro-catheter and microwire were then used under fluoroscopy guidance to try to recanalize the distal left anterior tibial artery. Catheterization to the ankle was possible. An arteriogram was performed through the microcatheter located in the distal anterior tibial artery. This demonstrates minimal forward flow and occluded distal left anterior tibial artery. Collaterals reconstitute dorsalis pedis. The catheter was removed of the wire. A 3 x 200 mm Rosebud balloon was then advanced over the wire under fluoroscopy guidance and positioned in the popliteal artery and proximal anterior tibial artery. Angioplasty was performed. Heparin was administered. The balloon was deflated and repositioned in the mid left anterior tibial artery. Angioplasty was performed. The Balloon was deflated and removed of the wire. Follow-up arteriogram was performed from the distal left anterior tibial artery. This demonstrates reflux into the mid anterior tibial artery which now demonstrates a wider lumen. Forward flow into the foot from this point is still not significantly improved. There is improved filling of collaterals. A 2 x 220 mm Miguel Ángel balloon was then advanced over the wire under fluoroscopy guidance and positioned in the mid and distal left anterior tibial artery, to the ankle. Angioplasty was performed. The balloon was then deflated and removed over the wire. A catheter was advanced over the wire to the proximal anterior tibial artery and a follow-up post angioplasty arteriogram was performed. This demonstrates improved flow in the proximal and mid left anterior tibial artery. The catheter was used to catheterize the distal left anterior tibial artery. An angiogram was performed and this demonstrates spasm in the distal left anterior tibial artery. Nitroglycerin was administered in this location. The catheter was retracted back to the popliteal artery and an angiogram was performed. This demonstrates improved flow in the popliteal artery, improved flow in the proximal and mid left anterior tibial artery and preserved flow in the peroneal artery. An arteriogram to the left foot was performed and this demonstrates preserved flow in the peroneal artery with distal reconstitution of the dorsalis pedis, plantar and medial branches. Improved flow in the proximal and mid left anterior tibial artery. There is persistent distal left anterior tibial artery occlusion at the ankle. The catheter and wire were used under fluoroscopy guidance to probe the origin of the left posterior tibial artery without success. The catheter, wire and sheath were removed. A 6 Azeri Mynx device was used to close the right groin arteriotomy, pressure held and hemostasis achieved. A sterile dressing was applied to the site. The patient tolerated the procedure well and was returned to the PRU in stable condition. EBL: < 5 mL. Complications:None. Impression: 1. Left leg angiogram demonstrates patent inflow to the left leg. 2. Runoff arteriogram to the left foot demonstrates single vessel supply to the left foot via the peroneal artery. Stenosis at the origin of anterior tibial artery and severely delayed flow in the mid anterior tibial artery with distal anterior tibial artery occlusion. Occluded posterior tibial artery. 3. Successful angioplasty of the anterior tibial artery to the ankle with improved flow in the proximal and mid anterior tibial artery. 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 Thank you for this referral. Cc TROY Lora MD Jul 03, 2020 11:55
== END ==
LOC: M IRPRO 10:50 → M MSPAV 13:16 → UNDOADMIN 13:16
PROVIDERS: ATTEND Radiology Diagnostic Radiology
DX: I70.222 Atherosclerosis of native arteries of extremities with rest pain, left leg (principal); L97.929 Non-pressure chronic ulcer of unspecified part of left lower leg with unspecified severity; Z79.82 Long term (current) use of aspirin; Z79.899 Other long term (current) drug therapy
CPT/HCPCS: 37224; 37228; 75710; 80048; 85027; 99152; 99153; C1725; C1729; C1760; C1769; C1887; C1894; J1200; J1644; J2250; J3010; Q9967

== ENCOUNTER → 2020-07-15 | Outpatient (POV) | payer MEDICARE ==
[~2020-07-15] VITALS: Ht 162.6 cm; Wt 59.1 kg
[~2020-07-15] MED LIST changes: -ALBUTEROL 90 MCG/ACT 8GM HFA INHALER INH PRN; -ATORVASTATIN 20 MG TAB PO SCH; -CETIRIZINE (ZyrTEC) 10 MG TAB PO SCH; -ISOSORBIDE MONONITRATE 10MG TABLET PO SCH; -ISOVUE-300 61% 50ML VIAL As Ordered ONE; -LIDOCAINE 1% MDV 20ML VIAL As Ordered ONE; -METOPROLOL TART 25 MG TABLET PO SCH; -MIDAZOLAM INJ 2MG/2ML VIAL (J2250 PER 1MG) As Ordered ONE; -MULTIVITAMINS/MINERALS THERAP 1 TAB PO SCH; -NITROGLYCERIN IN D5W 25MG/250ML (100MCG/ML) As Ordered ONE; -OMEPRAZOLE 20 MG CAP PO SCH; -SODIUM CHLORIDE NASAL 0.65% SPRAY BTL (OCEAN) PRN; -diphenhydrAMINE 50MG/ML VIAL (J1200) As Ordered ONE; -fentaNYL 100 MCG/2 ML INJECTION (J3010) As Ordered ONE
[2020-07-15 09:00] VITALS: BP 150/77
--- NOTE | 2020-07-16 12:22 | IRPN ---
[facility] IR Progress Note IR Progress Note DATE: Jul 16, 2020 FOLLOW-UP: 74-year-old nondiabetic male with bilateral lower extremity edema and left lower extremity rest pain and nonhealing ulcer. He is now status post left lower extremity angiography and intervention by myself. Angiography demonstrated he had single vessel peroneal artery flow to the left foot and the anterior tibial artery was patent proximally but occluded distally, not contributing significantly to the foot. The posterior tibial artery was occluded. He underwent anterior tibial artery recanalization and angioplasty, the artery could be recanalized to the level of the distal third of the tibia but not beyond and does not contribute to dorsalis pedis. He is on aspirin, Plavix and Xarelto. He does not smoke. He exercises. However, the pain keeps him up at night. He is also under the care of Dr. Patiño in [place] and there are currently no open surgical options for this patient. There is no change in his bilateral lower extremity edema. The right groin site has healed up without pain, mass or bruising. ON EXAMINATION: Right groin access site: No bruising, no tenderness or palpable lump. Bilateral lower extremity edema to mid-tibia. Left lower extremity: Color and temperature normal. Sensation and motor intact. DP/ PT nonpalpable. IMPRESSION: 74 year old non-diabetic male with bilateral lower extremity swelling and left lower extremity rest pain and nonhealing ulcer. He is now status post left lower extremity angiography and attempt at complete anterior tibial artery recanalization with modest result. He is on pregabalin, amitriptyline and trazodone for pain which interferes with his sleep and activities of daily living. He continues under the follow-up of vascular surgery Dr. Patiño. Follow-up in IR in 6 months. Thank you for this referral. CC Dr. Esquivel Allergies Coded Allergies: No Known Allergies (Unverified , 08/21/18) VS,Fishbone, I+O VS, Fishbone, I+O Vital Signs Date Time Temp Pulse Resp B/P (MAP) Pulse Ox O2 Delivery O2 Flow Rate FiO2 07/15/20 09:00 98.3 99 18 150/77 (101) 96 Room Air TROY MATTA MD Jul 16, 2020 12:22
== END ==
LOC: M IRPOV 08:34
PROVIDERS: ATTEND Radiology Diagnostic Radiology
DX: Z48.812 Encounter for surgical aftercare following surgery on the circulatory system (principal); I70.212 Atherosclerosis of native arteries of extremities with intermittent claudication, left leg; I70.222 Atherosclerosis of native arteries of extremities with rest pain, left leg; L97.829 Non-pressure chronic ulcer of other part of left lower leg with unspecified severity
CPT/HCPCS: 11042; G0463

== ENCOUNTER → 2020-07-28 | Outpatient (CLI) | payer MEDICARE ==
--- NOTE | 2020-07-28 12:34 | REP ---
INDICATION: VENOUS INSUFFICIENCY, VARICOSE VEINS COMPARISON: 09/05/2018. TECHNIQUE: Real time compression and duplex Doppler interrogation of the bilateral lower extremity deep venous system is performed. FINDINGS: Bilaterally, the common femoral, superficial femoral and popliteal veins are fully compressible with transducer pressure and demonstrate normal spontaneous and phasic flow, without evidence of deep venous thrombosis. Evaluation for venous reflux is performed bilaterally. There is mild reflux in both common femoral veins, duration on the right is approximately 1.2 seconds and on the left 2.6 seconds. Otherwise no reflux is seen in the remaining bilateral femoral or popliteal veins. There is no reflux in either greater saphenous vein or lesser saphenous vein. The mid to distal right greater saphenous vein has been surgically removed. The proximal right greater saphenous vein at the saphenofemoral junction measures 3 mm and the right lesser saphenous vein measures 3 mm. On the left the greater saphenous vein measures 4 mm at the saphenofemoral junction and at the midthigh, the more distal greater saphenous vein as well as the lesser saphenous vein both measure 3 mm. IMPRESSION: No evidence of deep venous thrombosis of the bilateral lower extremity femoral popliteal venous system. Only mild reflux in the bilateral common femoral veins. <Electronically signed by Jair David > 07/28/20 [id number]
== END ==
LOC: M RAD 11:00
PROVIDERS: ATTEND Radiology Diagnostic Radiology
DX: I83.893 Varicose veins of bilateral lower extremities with other complications (principal)

== ENCOUNTER → 2020-07-30 | Outpatient (REF) | payer MEDICARE | LOC: M LAB REF 12:12 | PROVIDERS: ATTEND Surgery | DX: L97.522 Non-pressure chronic ulcer of other part of left foot with fat layer exposed (principal) ==

== ENCOUNTER → 2020-08-05 | Outpatient (POV) | payer MEDICARE ==
--- NOTE | 2020-08-06 17:48 | IRPN ---
[facility] IR Progress Note IR Progress Note DATE: August 05, 2020 I called the patient to give him the results of his bilateral lower extremity venous reflux study. Bilateral lower extremity standing venous reflux study is negative for greater saphenous or lesser saphenous vein reflux. No further venous intervention planned. Patient advised to see his event specialist food demonstrator regarding lower extremity swelling. He has had no recent echocardiogram. He is on a very small dose of Lasix. Patient will follow up with cardiology. Cc Dr. Shetty Allergies Coded Allergies: No Known Allergies (Unverified , 08/21/18) TROY MATTA MD August 06, 2020 17:48
== END ==
LOC: M TMIRPOV 16:15
PROVIDERS: ATTEND Radiology Diagnostic Radiology
DX: R60.0 Localized edema (principal)

== ENCOUNTER → 2020-10-13 | Outpatient (CLI) | payer MEDICARE ==
--- NOTE | 2020-10-15 00:10 | ECWPNPC ---
PATIENT NAME: KOREY STRONG : 1945 GENDER: MALE VISIT DATE: 10/13/2020 DISCHARGE DATE: 10/13/20 1400 VISIT LOCKED DATE TIME: PHYSICIAN: HOME SANDOVAL RESOURCE: HOME SANDOVAL REASON FOR APPOINTMENT 1. LEFT LIMB PAIN S/P TRANSMETATARSAL AMPUTATION HISTORY OF PRESENT ILLNESS DEPRESSION SCREENING: PHQ-2 (2015 EDITION) LITTLE INTEREST OR PLEASURE IN DOING THINGS?NOT AT ALL FEELING DOWN, DEPRESSED, OR HOPELESS?NOT AT ALL TOTAL SCORE0 GENERAL: HPI 75-YEAR-OLD MALE IN FOR INITIAL PAIN CONSULT REGARDING LEFT LIMB PAIN STATUS POST TRANSMETATARSAL AMPUTATION. AMPUTATION WAS PERFORMED IN JULY AND SINCE THAT TIME PATIENT HAS EXPERIENCED PAIN. HE RATES HIS PAIN CURRENTLY AT A 7 OUT OF 10. PATIENT IS ON OXYCODONE AND LYRICA CURRENTLY AND HE ADMITS THAT THIS IS NOT COVERING HIS PAIN.. - - -. FALL RISK SCREENING: SCREENING NO FALLS REPORTED IN THE LAST YEAR . PAIN SCREENING: PATIENT HAS A COMPLAINT OF ACUTE OR CHRONIC PAIN :YES LOCATION OF PAIN:LEG(S), FEET INTENSITY OF PAIN (SCALE OF 1 TO 10):7 WHAT DOES YOUR PAIN FEEL LIKE:ACHING, BURNING, CONTINOUS, INTERMITTENT, SHARP, STABBING, TENDER, THROBBING, SORE, SHOOTING DURATION:INTERMITTENT, TRANSIENT, AWAKENS FROM SLEEP PAIN IS INCREASED BY:ACTIVITIES, PROLONGED STANDING PAIN IS DECREASED BY:USE OF PAIN MEDICATIONS, SITTING NURSING NOTE: - - -. PAIN CENTER INTAKE QUESTIONS: DO YOU HAVE A HISTORY OF MRSA? :NO DO YOU TAKE A BLOOD THINNERS? :YES XARELTO, PLAQUENIL DO YOU HAVE ANY BLEEDING DISORDERS? :NO ANY NEW NUMBNESS OR WEAKNESS IN YOUR LEGS OR ARMS? :NO ANY PACEMAKER,DEFIBRILLATOR, OR DORSAL COLUMN STIMULATOR? :NO DO YOU HAVE ANY RASHES OR OPEN SORES? :YES WOUND VAC ON LEFT FOOT ARE YOU ALLERGIC TO IV DYE? :NO ARE YOU DIABETIC? :NO ANY NEW PROBLEMS WITH YOUR MEDICATIONS? :NO HAVE YOU RECEIVED A VACCINE IN THE PAST 30 DAYS? :NO SECOND COVID VACCINATION 06/2020 DO YOU PLAN TO RECEIVE A VACCINE IN THE NEXT 21 DAYS? :NO DO YOU NEED ANY PRESCRIPTION? :NO DO YOU TAKE ANY IMMUNOSUPPRESSIVE MEDICATIONS? :NO IS THERE A CHANCE YOU COULD BE ? :NO ARE YOU BREAST FEEDING? :NO CURRENT MEDICATIONS TAKING FUROSEMIDE 20 MG TABLET 1 TABLET ORALLY ONCE A DAY TAKING PLAVIX 75 MG TABLET 1 TABLET ORALLY ONCE A DAY TAKING ASPIR-LOW 81 MG TABLET DELAYED RELEASE 1 TABLET ORALLY ONCE A DAY TAKING MULTI FOR HIM - TABLET DIRECTED ORALLY TAKING SINGULAIR 10 MG TABLET 1 TABLET ORALLY ONCE A DAY TAKING PROTONIX 40 MG TABLET DELAYED RELEASE 1 TABLET ORALLY ONCE A DAY TAKING OCUVITE TAKING METOPROLOL TARTRATE 25 MG TABLET 1 TABLET WITH FOOD ORALLY TWICE A DAY TAKING LOSARTAN POTASSIUM 50 MG TABLET 1 TABLET ORALLY ONCE A DAY TAKING OSTEO BI-FLEX JOINT SHIELD - TABLET DIRECTED ORALLY TAKING XARELTO 20 MG TABLET 1 TABLET WITH FOOD ORALLY ONCE A DAY TAKING ATORVASTATIN CALCIUM 40 MG TABLET 1 TABLET ORALLY ONCE A DAY TAKING PREGABALIN 50 MG CAPSULE 1 CAPSULE ORALLY ONCE A DAY TAKING OMEGA 3-6-9 FATTY ACIDS - CAPSULE DIRECTED ORALLY TAKING ASMANEX (14 METERED DOSES) 220 MCG/INH AEROSOL POWDER BREATH ACTIVATED 1 PUFF IN THE EVENING INHALATION ONCE A DAY, NOTES: BID NOT-TAKING PROBIOTIC - TABLET DELAYED RELEASE DIRECTED ORALLY , NOTES: BID NOT-TAKING LUMIGAN 0.01 % SOLUTION 1 DROP INTO AFFECTED EYE IN THE EVENING OPHTHALMIC ONCE A DAY NOT-TAKING OXYCODONE-ACETAMINOPHEN 5-325 MG TABLET 1 TABLET NEEDED ORALLY EVERY 6 HRS NOT-TAKING BACTRIM DS 800-160 MG TABLET 1 TABLET ORALLY DIRECTED- 1 HOUR PRIOR TO CYSTOSCOPY NOT-TAKING IPRATROPIUM BROMIDE HFA 17 MCG/ACT AEROSOL SOLUTION 2 PUFFS INHALATION FOUR TIMES A DAY NOT-TAKING TRAZODONE HCL 50 MG TABLET 1 TABLET AT BEDTIME NEEDED ORALLY ONCE A DAY, NOTES: 1/2 TABLET NOT-TAKING CETIRIZINE HCL 10 MG TABLET 1 TABLET ORALLY ONCE A DAY NOT-TAKING AMITRIPTYLINE HCL 10 MG TABLET 1 TABLET AT BEDTIME ORALLY ONCE A DAY, NOTES: BID NOT-TAKING BUMETANIDE 1 MG TABLET ORALLY TWICE A DAY MEDICATION LIST REVIEWED AND RECONCILED WITH THE PATIENT PAST MEDICAL HISTORY AMENIA HTN UROSEPSIS SLEEP APNEA- WEARS C-PAP POLYNEPHRITIS ATHEROSCLEROSIS ARTERIAL FOOT WOUNDS ALLERGIES N.K.D.A. SURGICAL HISTORY TRIPLE BYBASS 3 SENTS PLACED ORAL SURGERY ANGIOPLASTY- 03/17/20 TWO LT TOE AMPUTATIONS, FINAL RESULT WAS TRANSMET 07/2020 FAMILY HISTORY FATHER: MOTHER: SON(S): ALIVE DAUGHTER(S): ALIVE 2 BROTHER(S) , 1 SISTER(S) - HEALTHY. 1 SON(S) , 1 DAUGHTER(S) - HEALTHY. NO KNOWN UROLOGICAL ISSUES IN FAM. SOCIAL HISTORY GENERAL: TOBACCO USE ARE YOU A:FORMER SMOKER SMOKED LIGHTLY OVER 30 YEARS AGO LATEX QUESTIONNAIRE LATEX ALLERGY : HAVE YOU EVER DEVELOPED ANY TYPE OF REACTION AFTER HANDLING LATEX PRODUCTS SUCH RUBBER GLOVES, CONDOMS, DIAPHRAGMS, BALLOONS, SOCKS, OR UNDERWEAR?NO LATEX ALLERGY : HAVE YOU EVER DEVELOPED ANY TYPE OF REACTION DURING OR AFTER DENTAL APPOINTMENT, VAGINAL/RECTAL EXAMINATION, SURGICAL PROCEDURE, OR ANY OTHER EXPOSURE?NO LATEX RISK : HAVE YOU EVER HAD ANY DIFFICULTY BREATHING OR HIVES AFTER EATING OR HANDLING ANY FRUITS, OR VEGETABLES; SUCH KIWI, BANANAS, STONE FRUITS, OR CHESTNUTSNO LATEX RISK : DO YOU HAVE A PREVIOUS PERSONAL HISTORY OF MORE THAN NINE SURGERIES, SPINA BIFIDA, OR REPEATED CATHERIZATIONS? NO LATEX RISK : ARE YOU FREQUENTLY EXPOSED TO LATEX PRODUCTS IN YOUR OCCUPATION?NO DATE ASKED : 10/13/2020 ALCOHOL USE: NO. ALCOHOL SCREENING DID YOU HAVE A DRINK CONTAINING ALCOHOL IN THE PAST YEAR?NO POINTS0 INTERPRETATIONNEGATIVE RECREATIONAL DRUG USE DRUG USE?NO CAFFEINE CAFFEINE USE?YES HOW OFTEN AND HOW MUCH? 3/DAY COFFEE YAZIDISM YAZIDISM NO HINDU BELIEFS THAT WOULD IMPACT HEALTH CARE. LANGUAGE LANGUAGES SPOKEN:FILIPINO LEARNING BARRIERS / SPECIAL NEEDS BARRIERS TO LEARNING?NO HEARING IMPAIRED?NO VISION IMPAIRED?YES :CORRECTIVE LENSES COGNITIVELY IMPAIRED?NO READINESS TO LEARN?YES LEARNING PREFERENCES?NO LEARNING CAPABILITIES PRESENT?YES EMOTIONAL BARRIERS?NO SPECIAL DEVICES?YES :CANE, WALKER, WHEELCHAIR EXAMINATION SUPERVISOR NEEDED?NO DOMESTIC VIOLENCE DO YOU FEEL SAFE IN YOUR ENVIRONMENT?YES HOSPITALIZATION/MAJOR DIAGNOSTIC PROCEDURE SEPSIS JUNE 2019 SURGERY RELATED 02/2020 LIMB SALVAGE FOR LT FOOT/LEG @ [facility] 07/2020 REVIEW OF SYSTEMS CONSTITUTIONAL: ANY RECENT FEVER NO . CHILLS NO . WEIGHT CHANGE OF UNKNOWN REASONS NO . MUSCULOSKELETAL: ANY UNUSUAL JOINT PAIN OR SWELLING NOT MENTIONED NO . SYSTEMIC LUPUS NO . ANY NEUROMUSCULAR DISORDER NOT MENTIONED NO . LYME DISEASE NO . GASTROENTEROLOGY: ANY NEW CHANGE IN BOWEL CONTROL? NO . HISTORY OF LIVER DISORDER NOT MENTIONED NO . HISTORY OF UNUSUAL ABDOMINAL PAIN OR CRAMPING NOT MENTIONED NO . NO CONSTIPATION. GENITOURINARY: ANY NEW CHANGE IN BLADDER CONTROL? NO . ANY RENAL/KIDNEY CONDITON NOT MENTIONED NO . NEUROLOGY: HISTORY OF TBI NOT MENTIONED NO . OTHER NEW NUMBNESS OR PAIN PATTERNS NOT MENTIONED NO . NEW ONSET DIZZINESS OR NEUROLOGICAL CHANGES NOT MENTIONED NO . HISTORY OF SEVERE HEADACHES NOT MENTIONED NO . HISTORY OF STROKE OR NEUROLOGICAL DISORDER NOT MENTIONED NO . CARDIOLOGY: HEART SURGERY NO . CONGESTIVE HEART FAILURE/FLUID OVERLOAD NOT MENTIONED NO . HISTORY OF CHEST PAIN,IRREGULAR HEART BEAT NOT MENTIONED NO . RESPIRATORY: SHORTNESS OF BREATH ON EXERTION, WHEEZES, UNUSUAL COUGH NOT MENTIONED NO . ENDOCRINOLOGY: ADRENAL GLAND OR THYROID DISORDERS NOT MENTIONED NO . UNUSUAL URINATION, DIZZINESS OR LETHARGY NOT MENTIONED NO . VITAL SIGNS WT 135 LBS, WT-KG PER PT, HT 64 IN, BMI 23.17 INDEX, BP 147/82 MM HG, HR 82 /MIN, RR 18 /MIN, TEMP 98.4 F, OXYGEN SAT % 97%, SAFE IN ENV? (Y/N) YES, NA INITIALS AW 1315, REVIEWED BY: SATNAM MATHEWS MA. EXAMINATION GENERAL EXAMINATION: GENERALNO ACUTE DISTRESS, WELL NOURISHED AND HYDRATED. PSYCHAPPROPRIATE MOOD AND AFFECT . LUNGS:MILD CRACKLES RIGHT LOWER LOBE LUNG SOUNDS CLEAR OTHERWISE . HEART:NO MURMURS, REGULAR RATE AND RHYTHM. ASSESSMENTS PHANTOM LIMB PAIN - G54.7 (PRIMARY) TREATMENT PHANTOM LIMB PAIN INCREASE PREGABALIN CAPSULE, 75 MG, 1 CAPSULE, ORALLY, THREE TIMES DAILY, 30 DAYS, 90, REFILLS 1 NOTES: 75-YEAR-OLD MALE IN FOR INITIAL PAIN CONSULT REGARDING PAIN STATUS POST METATARSAL AMPUTATION. GIVEN PRESENTING SYMPTOMS RECOMMEND INCREASING LYRICA TO 75 MG 3 TIMES DAILY WITH FOLLOW-UP IN 1 MONTH TO DETERMINE EFFICACY OF TREATMENT. PATIENT HAS EXPRESSED UNDERSTANDING OF AND WAS IN AGREEMENT WITH TREATMENT PLAN. GIVEN TIME TO ASK QUESTIONS AND EXPRESS CONCERNS. ISTOP REGISTRY REVIEWED AND DEMONSTRATES COMPLLIANCE. (REF #[id number] ). PROCEDURE CODES FA211 ESTABILISHED PATIENT [facility] CHARGE DISPOSITION & COMMUNICATION FOLLOW UP 4 WEEKS (REASON: MEDICATION INCREASE) ELECTRONICALLY SIGNED BY ARVIN FITZGERALD ON 10/14/2020 AT 09:45 AM EDT DISCLAIMER : THIS IS A VISIT SUMMARY EXTRACTED FROM THE [facility] CHART. IT IS NOT A COPY OF THE [facility] PROGRESS NOTE. MTDD
== END ==
LOC: M PAIN 13:00
PROVIDERS: ATTEND Family Medicine
DX: G54.6 Phantom limb syndrome with pain (principal); D64.9 Anemia, unspecified; I10 Essential (primary) hypertension; G47.30 Sleep apnea, unspecified; Z87.891 Personal history of nicotine dependence; Z79.02 Long term (current) use of antithrombotics/antiplatelets; Z79.82 Long term (current) use of aspirin; Z79.01 Long term (current) use of anticoagulants; Z79.899 Other long term (current) drug therapy; Z95.5 Presence of coronary angioplasty implant and graft

== ENCOUNTER → 2020-10-16 | Outpatient (REF) | payer MEDICARE | LOC: M LAB REF 17:14 | PROVIDERS: ATTEND Physician Assistant | DX: J45.21 Mild intermittent asthma with (acute) exacerbation (principal) ==

== ENCOUNTER → 2020-11-13 | Outpatient (CLI) | payer MEDICARE | LOC: M PAIN 11:30 | PROVIDERS: ATTEND Anesthesiology | DX: G54.7 Phantom limb syndrome without pain (principal); G47.30 Sleep apnea, unspecified; Z87.891 Personal history of nicotine dependence; Z79.01 Long term (current) use of anticoagulants; Z79.899 Other long term (current) drug therapy ==

== ENCOUNTER → 2020-12-19 | Outpatient (CLI) | payer MEDICARE | LOC: M PAIN 11:15 | PROVIDERS: ATTEND Anesthesiology | DX: G54.7 Phantom limb syndrome without pain (principal); M79.672 Pain in left foot; G47.30 Sleep apnea, unspecified; Z87.891 Personal history of nicotine dependence; Z79.01 Long term (current) use of anticoagulants; Z79.899 Other long term (current) drug therapy | CPT/HCPCS: 15271; G0463; Q4186 ==

== ENCOUNTER 2022-01-02 11:22 | Emergency (ER) | payer MEDICARE ==
[~2022-01-02 11:22] MED LIST changes: +ALBU6.7H6 INH; -ASMA220A2 INH; -LISI20TA20 PO; +LISI20TA37 PO; +MOME220A2 INH; -MONT10TA10 PO; +MONT10TA97 PO; -PROV108A INH
[2022-01-02 12:35] LABS: BASO # 0.1 10^3/uL (0.0-0.2); BASO % 0.8 % (0.0-1.0); EOS # 0.1 10^3/uL (0.0-0.5); EOS % 0.6 % (0.0-3.0); HEMATOCRIT 46.6 % (42.0-52.0); HEMOGLOBIN 15.7 g/dl (13.5-17.5); LYMPH % 8.9 % (24.0-44.0); MEAN CORPUSCULAR HEMOGLOBIN 31.8 pg (27.0-33.0); MEAN CORPUSCULAR HGB CONC 33.7 g/dl (32.0-36.5); MEAN CORPUSCULAR VOLUME 94.5 fl (80.0-96.0); MONO # 1.3 10^3/uL (0.0-0.8); MONO % 11.3 % (2.0-8.0); NEUTROPHILS % 77.3 % (36.0-66.0); PLATELET COUNT, AUTOMATED 206 10^3/uL (150-450); RED BLOOD COUNT 4.93 10^6/uL (4.30-6.10); WHITE BLOOD COUNT 11.6 10^3/uL (4.0-10.0)
[2022-01-02 12:46] LABS: INR 1.08; PROTHROMBIN TIME 14.2 SECONDS (12.5-14.5)
[2022-01-02 12:47] LABS: PARTIAL THROMBOPLASTIN TIME 30.9 SECONDS (24.8-34.2)
[2022-01-02 13:05] LABS: RSV AMPLIFICATION NEGATIVE (NEGATIVE)
[2022-01-02 13:09] LABS: BLOOD UREA NITROGEN 17 MG/DL (7-18); CARBON DIOXIDE LEVEL 24 MEQ/L (21-32); CHLORIDE LEVEL 110 MEQ/L (98-107); CREATININE FOR GFR 0.86 MG/DL (0.70-1.30); GLOMERULAR FILTRATION RATE > 60.0 (>42); GLUCOSE, FASTING 131 MG/DL (70-100); POTASSIUM SERUM 3.6 MEQ/L (3.5-5.1); SODIUM LEVEL 140 MEQ/L (136-145)
[2022-01-02] MEDS ORDERED: ASPIRIN 81 MG CHEW TABLET PO ONE (14:25)
[2022-01-02 16:30] LABS: INR 1.04; PROTHROMBIN TIME 13.8 SECONDS (12.5-14.5)
[2022-01-02] MEDS ORDERED: VALSARTAN 80 MG TAB (DIOVAN) PO ONE (16:30)
[2022-01-02] MEDS ORDERED: METOPROLOL TART 25 MG TABLET PO ONE (16:30)
[2022-01-02] MEDS ORDERED: CLOPIDOGREL 75 MG TAB PO ONE (16:30)
[2022-01-02] MEDS ORDERED: NITROGLYCERIN 2% OINT 1 GM *U/D* PKT TOP ONE (18:30)
[2022-01-02 19:35] VITALS: BP 136/64
[2022-01-02 19:52] VITALS: BP 211/93
== END 2022-01-02 20:04 | disposition short-term general hospital (02) ==
LOC: M ED 11:22
DX: I21.4 Non-ST elevation (NSTEMI) myocardial infarction (principal); R00.1 Bradycardia, unspecified; I10 Essential (primary) hypertension; G47.33 Obstructive sleep apnea (adult) (pediatric); Z95.5 Presence of coronary angioplasty implant and graft; Z87.891 Personal history of nicotine dependence; Z79.51 Long term (current) use of inhaled steroids; Z79.82 Long term (current) use of aspirin; Z79.899 Other long term (current) drug therapy; Z79.891 Long term (current) use of opiate analgesic

== ENCOUNTER 2022-07-13 07:40 | Day surgery (SDC) | payer MEDICARE ==
[~2022-07-13] VITALS: Ht 162.6 cm; Wt 65.2 kg
[~2022-07-13 07:40] MED LIST changes: +AMIT10TA7 PO; +CARV6.25 PO; +CEFUROXIME 1MG/0.1ML INTRACAMERAL INJ As Ordered ONE; +CYCLOPENTOLATE 1% OPHTH SOLN 2ML BTL OD SCH; +FERR325T19 PO; +FURO20TA2 PO; +IRBE300T7 PO; +LIDOCAINE 1% SDV 5ML VIAL As Ordered ONE; +OFLOXACIN 0.3 % (OCUFLOX) OPTH SOL 5ML OD SCH; +PANT40TA29 PO; +PHENYLEPHRINE 2.5% OPHTH SOL 2ML OD SCH; +PROPARACAINE 0.5% OPHTH SOL 15ML OD ONE; +TROPICAMIDE 1% OPHTH SOLN 15ML OD SCH; +XARE20TA PO; +[UNRECOGNIZED DRUG - CODE] PO
[2022-07-13] MEDS ORDERED: fentaNYL 100 MCG/2 ML INJECTION As Ordered ONE (08:48)
[2022-07-13] MEDS ORDERED: MIDAZOLAM INJ 2MG/2ML VIAL As Ordered ONE (08:48)
[2022-07-13] MEDS ORDERED: BSS IRR 500ML/OMIDRIA 4ML IRR BAG (OR ONLY) As Ordered ONE (08:55)
[2022-07-13] MEDS ORDERED: DUOVISC (0.50ML VISCOAT/0.85ML PROVISC) OPHTH KIT As Ordered ONE (09:55)
[2022-07-13 10:15] VITALS: BP 149/72
== END 2022-07-13 10:39 | disposition home or self-care (01) ==
LOC: M SDC 07:40
PROVIDERS: ATTEND Ophthalmology
DX: H25.11 Age-related nuclear cataract, right eye (principal); H21.81 Floppy iris syndrome; H57.03 Miosis; E78.5 Hyperlipidemia, unspecified; I10 Essential (primary) hypertension; G47.33 Obstructive sleep apnea (adult) (pediatric); J44.9 Chronic obstructive pulmonary disease, unspecified; J45.909 Unspecified asthma, uncomplicated; Z86.74 Personal history of sudden cardiac arrest; Z95.5 Presence of coronary angioplasty implant and graft; Z79.02 Long term (current) use of antithrombotics/antiplatelets; Z79.810 Long term (current) use of selective estrogen receptor modulators (SERMs); Z79.899 Other long term (current) drug therapy
CPT/HCPCS: 66982; J0697; J1097; J2250; J3010; V2632

== ENCOUNTER → 2022-08-17 | Outpatient (CLI) | payer MEDICARE ==
[~2022-08-17] MED LIST changes: -CEFUROXIME 1MG/0.1ML INTRACAMERAL INJ As Ordered ONE; -CYCLOPENTOLATE 1% OPHTH SOLN 2ML BTL OD SCH; -LIDOCAINE 1% SDV 5ML VIAL As Ordered ONE; +METO75TA PO; -OFLOXACIN 0.3 % (OCUFLOX) OPTH SOL 5ML OD SCH; -PHENYLEPHRINE 2.5% OPHTH SOL 2ML OD SCH; -PROPARACAINE 0.5% OPHTH SOL 15ML OD ONE; +TRAZ-252 PO; -TROPICAMIDE 1% OPHTH SOLN 15ML OD SCH
== END ==
LOC: M RAD 12:19
PROVIDERS: ATTEND Surgery Vascular Surgery
DX: I70.211 Atherosclerosis of native arteries of extremities with intermittent claudication, right leg (principal); I70.203 Unspecified atherosclerosis of native arteries of extremities, bilateral legs

== ENCOUNTER 2022-08-31 08:14 | Day surgery (SDC) | payer MEDICARE ==
[~2022-08-31] VITALS: Ht 162.6 cm; Wt 64.9 kg
[~2022-08-31 08:14] MED LIST changes: +CEFUROXIME 1MG/0.1ML INTRACAMERAL INJ As Ordered ONE; +CYCLOPENTOLATE 1% OPHTH SOLN 2ML BTL OS SCH; +LIDOCAINE 1% SDV 5ML VIAL As Ordered ONE; +OFLOXACIN 0.3 % (OCUFLOX) OPTH SOL 5ML OS SCH; +PHENYLEPHRINE 2.5% OPHTH SOL 2ML OS SCH; +PROPARACAINE 0.5% OPHTH SOL 15ML OS ONE; +TROPICAMIDE 1% OPHTH SOLN 15ML OS SCH
[2022-08-31] MEDS ORDERED: BSS IRR 500ML/OMIDRIA 4ML IRR BAG (OR ONLY) As Ordered ONE (09:29)
[2022-08-31] MEDS ORDERED: MIDAZOLAM INJ 2MG/2ML VIAL As Ordered ONE (10:08)
[2022-08-31 10:30] VITALS: BP 127/69; TEMP 97.2; O2SAT 97
== END 2022-08-31 10:53 | disposition home or self-care (01) ==
LOC: M SDC 08:14
PROVIDERS: ATTEND Ophthalmology
DX: H25.12 Age-related nuclear cataract, left eye (principal); H21.81 Floppy iris syndrome; I10 Essential (primary) hypertension; E78.5 Hyperlipidemia, unspecified; G47.33 Obstructive sleep apnea (adult) (pediatric); N40.0 Benign prostatic hyperplasia without lower urinary tract symptoms; Z79.899 Other long term (current) drug therapy; Z87.891 Personal history of nicotine dependence; Z98.61 Coronary angioplasty status; I25.2 Old myocardial infarction; J44.9 Chronic obstructive pulmonary disease, unspecified; Z79.01 Long term (current) use of anticoagulants; Z79.02 Long term (current) use of antithrombotics/antiplatelets
CPT/HCPCS: 66982; J0697; J1097; J2250; V2632

== ENCOUNTER 2022-12-08 09:20 | Day surgery (SDC) | payer OTHER, MEDICARE ==
[~2022-12-08] VITALS: Ht 162.6 cm; Wt 61.2 kg
[~2022-12-08 09:20] MED LIST changes: -CEFUROXIME 1MG/0.1ML INTRACAMERAL INJ As Ordered ONE; +COLA100C5 PO; -CYCLOPENTOLATE 1% OPHTH SOLN 2ML BTL OS SCH; +GLUC1TAB58 PO; -LIDOCAINE 1% SDV 5ML VIAL As Ordered ONE; +MV-M1CAP8 PO; +NS 1,000 ML IV ONE; -OFLOXACIN 0.3 % (OCUFLOX) OPTH SOL 5ML OS SCH; -PHENYLEPHRINE 2.5% OPHTH SOL 2ML OS SCH; -PROPARACAINE 0.5% OPHTH SOL 15ML OS ONE; -TROPICAMIDE 1% OPHTH SOLN 15ML OS SCH; +VITA100093 PO
[2022-12-08] MEDS ORDERED: LIDOCAINE 2% 100MG/5ML SDV (FOR ANES.) As Ordered ONE (10:39)
[2022-12-08] MEDS ORDERED: propofoL 200 MG/20 ML VIAL As Ordered ONE (10:39)
[2022-12-08 12:10] VITALS: TEMP 97.2
[2022-12-08] MEDS ORDERED: PHENYLephrine 500MCG 5ML (100MCG/ML) SYRINGE As Ordered ONE (12:12)
[2022-12-08] MEDS ORDERED: ePHEDrine SULFATE 25 MG/5 ML(5MG/ML) SYRINGE As Ordered ONE (12:13)
[2022-12-08 12:39] VITALS: BP 170/88; O2SAT 95
== END 2022-12-08 12:50 | disposition home or self-care (01) ==
LOC: M OPP 09:20
PROVIDERS: ATTEND Internal Medicine Gastroenterology
DX: Z86.010 Personal history of colon polyps (principal); K63.5 Polyp of colon; K64.0 First degree hemorrhoids; I25.2 Old myocardial infarction; I10 Essential (primary) hypertension; E78.5 Hyperlipidemia, unspecified; M19.90 Unspecified osteoarthritis, unspecified site; J45.909 Unspecified asthma, uncomplicated; G47.30 Sleep apnea, unspecified; Z95.5 Presence of coronary angioplasty implant and graft; Z87.891 Personal history of nicotine dependence; Z95.1 Presence of aortocoronary bypass graft; Z79.01 Long term (current) use of anticoagulants; Z79.899 Other long term (current) drug therapy
CPT/HCPCS: 45385; 88305; J2371

== ENCOUNTER → 2025-01-30 | Outpatient (CLI) | payer MEDICARE ==
[~2025-01-30] MED LIST changes: +AMIT10TA11 PO; -AMIT10TA7 PO; +CARV25TA PO; +FURO40TA2 PO; +HYDR-161 PO; +IRBE300T25 PO; -IRBE300T7 PO; +MULT1TAB8 PO; -NS 1,000 ML IV ONE; +POTA10CA70 PO; +TAMS-18 PO; +VENTAER INH
== END ==
LOC: M WUC 11:32
PROVIDERS: ATTEND Physician Assistant
DX: M19.012 Primary osteoarthritis, left shoulder (principal)